=== PATIENT | male | born 1965 | race African-American/Black ===

== ENCOUNTER 2017-01-11 23:57 | Emergency (ER) | payer OTHER | END 2017-01-12 02:30 | disposition other institution (70) | LOC: ED 23:57 | DX: Z02.89 Encounter for other administrative examinations (principal); M25.532 Pain in left wrist ==

== ENCOUNTER 2017-01-11 23:57 | Emergency (ER) | payer SELFPAY ==
[~2017-01-11] VITALS: Ht 172.7 cm; Wt 65.8 kg
[2017-01-12 02:30] VITALS: BP 130/65
== END 2017-01-12 02:30 | disposition other institution (70) ==
LOC: ED 23:57
DX: M25.532 Pain in left wrist (principal)
CPT/HCPCS: Q0092